=== PATIENT | male | born 1980 | race Caucasian/White ===

== ENCOUNTER 2018-01-06 11:55 | Emergency (ER) | payer MEDICAID ==
[~2018-01-06] VITALS: Ht 170.2 cm; Wt 74.8 kg
[~2018-01-06 11:55] MED LIST: FLUO0.2535 PO; HYDR1TAB PO; IBUP200C5 PO; [UNRECOGNIZED DRUG - OTHER] SUBCUT
[2018-01-06 12:07] VITALS: BP 134/74
== END 2018-01-06 13:06 | disposition home or self-care (01) ==
LOC: ER 11:58
DX: S50.811A Abrasion of right forearm, initial encounter (principal); M79.641 Pain in right hand; K50.90 Crohn's disease, unspecified, without complications; F17.200 Nicotine dependence, unspecified, uncomplicated; W01.0XXA Fall on same level from slipping, tripping and stumbling without subsequent striking against object, initial encounter; Y93.67 Activity, basketball; Y92.89 Other specified places as the place of occurrence of the external cause; Y99.8 Other external cause status
CPT/HCPCS: 73090; 73130; 99284; A4606; Z7610

== ENCOUNTER 2018-12-09 22:17 | Emergency (ER) | payer MEDICAID ==
[~2018-12-09] VITALS: Ht 170.2 cm; Wt 61.2 kg
--- NOTE | 2018-12-09 23:29 | NUR ---
KALASEVIELKA FROM HOME. TO ER BED 12. AAOX4. NO RESP DISTRESS NOTED, EVEN AND UNLABORED BREATHING. AMBULATORY. C/O RT FLANK PAIN. PT REPORTS PAIN 7/10 STARTED 4-5PM EARLIER. REPORTS HAVING HX OF KIDNEY STONES 2-3 YRS AGO. PT REPORTS THAT HIS URINE WAS BLOODY. TOOK VICODEINE WHICH TOOK THE PAIN AWAY BUT STARTED AGAIN 2 HOURS AGO. PT STATES THAT THE PAIN WAS SIMILAR TO WHEN HE HAD THE KIDNEY STONES. AWAITING MD FOR ZULAY.
[2018-12-09] MEDS ORDERED: ONDANSETRON HCL/PF 4 MG/2 ML VIAL ONE (23:34)
[2018-12-09] MEDS ORDERED: HYDROMORPHONE 1 MG/1 ML DISP.SYRIN ONE (23:34)
[2018-12-09] MEDS ORDERED: KETOROLAC TROMETHAMINE INJ 30 MG/ML VIAL ONE (23:34)
[2018-12-09] MEDS: HYDROMORPHONE INJ 2 MG/ML DISP.SYRIN IV ONE (23:39)
[2018-12-09] MEDS: IV NS 0.9% 1,000 ML BAG IV ONE (23:39)
[2018-12-09] MEDS: ONDANSETRON HCL/PF 4 MG/2 ML VIAL IVP ONE (23:40)
[2018-12-09] MEDS: KETOROLAC TROMETHAMINE INJ 30 MG/ML VIAL IV ONE (23:40)
[2018-12-09 23:41] LABS: APPEARANCE,URINE Clear (CLEAR); BILIRUBIN,URINE Negative (NEGATIVE); BLOOD, URINE Large Ery/uL (NEGATIVE); COLOR,URINE Yellow (YELLOW); KETONES,URINE Trace (NEGATIVE); LEUKOCYTE ESTERASE ,URINE Negative (NEGATIVE); NITRITE, URINE Negative (NEGATIVE); PROTEIN,URINE 100 mg/dl (NEGATIVE); UGLUCOSE Negative (NEGATIVE); UROBILINOGEN,URINE 0.2 EU/dL (0.2)
--- NOTE | 2018-12-09 23:41 | NUR ---
IV LINE OBTAINED ON R AC 18G. BLOOD DRAWN AND GIVEN TO [employer] AT BEDSIDE. URINE SENT OT LAB. MD AT BEDSIDE
[2018-12-09 23:43] LABS: BASOPHILS % (AUTO) 0.7 % (0.0-2.0); EOSINOPHILS % (AUTO) 1.5 % (0.0-6.0); HEMATOCRIT 40 % (39-51); HEMOGLOBIN 13.7 g/dL (13.5-17.5); LYMPHOCYTES # (AUTO) 3.1 /CMM (0.8-4.8); LYMPHOCYTES % (AUTO) 43.2 % (20.0-44.0); MEAN CORPUSCULAR HGB CONC 34 g/dl (31.0-36.0); MEAN CORPUSCULAR VOLUME 87 fL (80-96); MONOCYTES # (AUTO) 0.6 /CMM (0.1-1.30); NEUTROPHILS # (AUTO) 3.3 /CMM (1.8-8.9); NEUTROPHILS % (AUTO) 46.6 % (43.0-81.0); PLATELET COUNT (AUTO) 312 /CMM (150-450); RED BLOOD CELL COUNT(AUTO) 4.64 MIL/uL (4.5-6.0); WHITE BLOOD COUNT (AUTO) 7.2 K/uL (4.3-11.0)
[2018-12-09 23:51] LABS: CALCIUM, SERUM 8.8 mg/dL (8.5-10.1); CREATININE 0.9 mg/dL (0.6-1.3); POTASSIUM 3.6 mmol/L (3.5-5.1)
[2018-12-09 23:56] LABS: BILIRUBIN,DIRECT 0.1 mg/dL (0.0-0.2); BILIRUBIN,TOTAL 0.4 mg/dL (0.2-1.0); TOTAL PROTEIN, SERUM 7.5 g/dL (6.4-8.2)
[2018-12-10 00:02] LABS: BACTERIA,URINE Few /HPF (None Seen); MUCUS,URINE Many /LPF (None Seen); RBC,URINE TOO NUMEROUS TO COUN /HPF (0-2); SQUAMOUS EPITHELIAL CELL,UR Rare /HPF (None Seen)
--- NOTE | 2018-12-10 00:10 | NUR ---
US IS AT BEDSIDE
[2018-12-10 00:39] VITALS: BP 127/98
--- NOTE | 2018-12-10 00:40 | NUR ---
IV removed. Catheter intact and site benign. Pressure and 4x4 applied to site. No bleeding noted.
--- NOTE | 2018-12-10 00:49 | NUR ---
Patient discharged to home in stable condition. Written and verbal after care instructions given. Patient verbalizes understanding of instruction. Pt ambulatory with a steady gait
== END 2018-12-10 01:03 | disposition home or self-care (01) ==
LOC: ER 22:18
DX: N13.2 Hydronephrosis with renal and ureteral calculous obstruction (principal); K50.90 Crohn's disease, unspecified, without complications; F17.200 Nicotine dependence, unspecified, uncomplicated; Z87.442 Personal history of urinary calculi
CPT/HCPCS: 36415; 76770; 80048; 80076; 81001; 83690; 85025; 96374; 96375; 99284; J1170; J1885; J2405; J7030; 81000-TC

== ENCOUNTER 2021-09-09 08:59 | Emergency (ER) | payer MEDICAID ==
[~2021-09-09] VITALS: Ht 170.2 cm; Wt 65.8 kg
[2021-09-09 09:05] VITALS: BP 145/84
--- NOTE | 2021-09-09 09:22 | NUR ---
COVID, FLU, AND STREP SWABS DONE AND SENT TO LAB
--- NOTE | 2021-09-09 10:25 | NUR ---
Patient discharged to home in stable condition. Written and verbal after care instructions given. Patient verbalizes understanding of instruction.
== END 2021-09-09 10:27 | disposition home or self-care (01) ==
LOC: ER 09:02
DX: U07.1 COVID-19 (principal); J02.8 Acute pharyngitis due to other specified organisms; F17.200 Nicotine dependence, unspecified, uncomplicated; K50.90 Crohn's disease, unspecified, without complications; Z79.899 Other long term (current) drug therapy
CPT/HCPCS: 87070; 87426; 87804; 87880; 99283; C9803; 86403-TC